=== PATIENT | male | born 1965 | race Caucasian/White ===

== ENCOUNTER 2019-05-15 23:18 | Inpatient (IN) | payer BC ==
[2019-05-16] MEDS ORDERED: ACETAMINOPHEN 325 MG TAB PO
[2019-05-16] MEDS ORDERED: morphine 2 MG INJ IV
[2019-05-16] MEDS ORDERED: NACL 0.9% 3 ML SYG IV
[2019-05-16] MEDS ORDERED: VANCOMYCIN IV PER PHARMACY XX (00:30)
[2019-05-16] MEDS ORDERED: SOD CHLORIDE 0.9% 1,000 ML IV (00:30)
[2019-05-16 00:47] LABS: ADD MAN DIFF? NO; BASOPHILS % 0.4 % (0.0-2.0); EOSINOPHILS # 0.2 10^3/ul (0.0-0.5); EOSINOPHILS % 1.9 % (0.0-7.0); HEMATOCRIT 34.4 % (42.0-52.0); HEMOGLOBIN 11.6 g/dl (14.0-18.0); LYMPHOCYTES # 1.4 10^3/ul (0.8-2.9); LYMPHOCYTES % 13.2 % (15.0-51.0); MEAN CORPUSCULAR HEMOGLOBIN 27.3 pg (29.0-33.0); MEAN CORPUSCULAR HGB CONC 33.7 g/dl (32.0-37.0); MEAN CORPUSCULAR VOLUME 80.9 fl (82.0-101.0); MEAN PLATELET VOLUME 9.3 fl (7.4-10.4); MONOCYTE # 0.9 10^3/ul (0.3-0.9); MONOCYTES % 8.7 % (0.0-11.0); NEUTROPHIL # 7.9 10^3/ul (1.6-7.5); NEUTROPHILS % 75.4 % (39.0-77.0); PLATELET COUNT 239 10^3/UL (140-415); RED BLOOD COUNT 4.25 10^6/ul (4.70-6.10); RED CELL DISTRIBUTION WIDTH 13.4 % (11.5-14.5)
[2019-05-16 00:47] LABS: WHITE BLOOD COUNT 10.5 10^3/ul (4.8-10.8)
[2019-05-16] MEDS: INSULIN ASPART [NOVOLOG] 3 ML PEN SC ×6 (01:00→21:00)
[2019-05-16] MEDS ORDERED: DEXTROSE 50% 50 ML SYRINGE IV (01:00)
[2019-05-16] MEDS ORDERED: GLUCOSE GEL 15 GRAM TUBE PO ×2 (01:00)
[2019-05-16] MEDS ORDERED: GLUCAGON 1 MG INJ IM (01:00)
[2019-05-16] MEDS ORDERED: GLUCOSE GEL 15 GRAM TUBE BUCCAL (01:00)
[2019-05-16 01:07] LABS: ALANINE AMINOTRANSFERASE 17 IU/L (13-69); ALBUMIN 4.1 g/dl (3.3-4.9); ALBUMIN/GLOBULIN RATIO 1.17; ALKALINE PHOSPHATASE 66 IU/L (42-121); ANION GAP 10 (5-13); ASPARTATE AMINO TRANSFERASE 24 IU/L (15-46); BILIRUBIN,INDIRECT 0.5 mg/dl (0-1.1); BILIRUBIN,TOTAL 0.5 mg/dl (0.2-1.3); BLOOD UREA NITROGEN 16 mg/dl (7-20); CALCIUM 9.6 mg/dl (8.4-10.2); CARBON DIOXIDE 27 mmol/L (21-31); CHLORIDE 105 mmol/L (97-110); CREATININE 0.91 mg/dl (0.61-1.24); Estimated GFR > 60 mL/min (>60); GLUCOSE 68 mg/dl (70-220); POTASSIUM 3.7 mmol/L (3.5-5.1); SODIUM 142 mmol/L (135-144); TOTAL PROTEIN 7.6 g/dl (6.1-8.1)
[2019-05-16] MEDS: DEXTROSE 5%-0.45% NACL 1,000 ML IV ×2 (01:07→23:13)
[2019-05-16] MEDS: ACCU-CHEK XX (01:56)
[2019-05-16] MEDS: POTASSIUM CHLORIDE (SR) 20 MEQ TAB PO (01:56)
[2019-05-16] MEDS: VANCOMYCIN HCL 2 GM in SOD CHLORIDE 0.9% 500 ML IVPB (02:48)
[2019-05-16] MEDS ORDERED: LEVOFLOXACIN 750MG/D5W (PMX) 150 ML IVPB (05:00)
[2019-05-16 05:54] LABS: ADD MAN DIFF? NO
[2019-05-16 05:58] LABS: BASOPHILS % 0.3 % (0.0-2.0); EOSINOPHILS # 0.2 10^3/ul (0.0-0.5); HEMATOCRIT 35.9 % (42.0-52.0); HEMOGLOBIN 12.2 g/dl (14.0-18.0); LYMPHOCYTES # 1.3 10^3/ul (0.8-2.9); LYMPHOCYTES % 12.3 % (15.0-51.0); MEAN CORPUSCULAR HEMOGLOBIN 27.2 pg (29.0-33.0); MEAN CORPUSCULAR VOLUME 80.1 fl (82.0-101.0); MEAN PLATELET VOLUME 9.7 fl (7.4-10.4); MONOCYTE # 0.9 10^3/ul (0.3-0.9); MONOCYTES % 8.8 % (0.0-11.0); NEUTROPHIL # 7.8 10^3/ul (1.6-7.5); NEUTROPHILS % 76.3 % (39.0-77.0); PLATELET COUNT 235 10^3/UL (140-415); RED BLOOD COUNT 4.48 10^6/ul (4.70-6.10); RED CELL DISTRIBUTION WIDTH 13.4 % (11.5-14.5)
[2019-05-16 05:58] LABS: WHITE BLOOD COUNT 10.2 10^3/ul (4.8-10.8)
[2019-05-16 06:19] LABS: INR 1.15; PROTIME 14.8 Sec (11.9-14.9); PT RATIO 1.2
[2019-05-16 06:20] LABS: PARTIAL THROMBOPLASTIN TIME 40.5 Sec (23.0-35.0)
[2019-05-16 06:25] LABS: IRON 18 ug/dl (35-150)
[2019-05-16 06:27] LABS: ALANINE AMINOTRANSFERASE 23 IU/L (13-69); ALBUMIN 3.8 g/dl (3.3-4.9); ALBUMIN/GLOBULIN RATIO 1.22; ALKALINE PHOSPHATASE 74 IU/L (42-121); ANION GAP 9 (5-13); ASPARTATE AMINO TRANSFERASE 26 IU/L (15-46); BILIRUBIN,INDIRECT 0.5 mg/dl (0-1.1); BILIRUBIN,TOTAL 0.5 mg/dl (0.2-1.3); BLOOD UREA NITROGEN 15 mg/dl (7-20); CALCIUM 9.3 mg/dl (8.4-10.2); CARBON DIOXIDE 28 mmol/L (21-31); CHLORIDE 105 mmol/L (97-110); CREATININE 0.86 mg/dl (0.61-1.24); Estimated GFR > 60 mL/min (>60); GLUCOSE 72 mg/dl (70-220); POTASSIUM 4.5 mmol/L (3.5-5.1); SODIUM 142 mmol/L (135-144); TOTAL PROTEIN 6.9 g/dl (6.1-8.1)
[2019-05-16 06:35] LABS: % IRON SATURATION 6 % SAT (22-52); TOTAL IRON BINDING CAPACITY 286 ug/dl (241-421)
[2019-05-16] MEDS: LEVOFLOXACIN 750MG/D5W (PMX) 150 ML IVPB (06:52)
[2019-05-16 07:03] LABS: CHOL/HDL RATIO 3.8 RATIO; CHOLESTEROL 119 mg/dl (100-200); HDL CHOLESTEROL 31 mg/dl (28-71); LDL CHOLESTEROL,CALCULATED 75 mg/dl; TRIGLYCERIDES 63 mg/dl (0-149)
[2019-05-16 07:30] LABS: HEMOGLOBIN A1C 5.8 % (0-5.9)
[2019-05-16 11:26] LABS: ERYTHROCYTE SEDIMENTATION RATE 100 mm/Hr (0-20)
[2019-05-16 11:31] LABS: C-REACTIVE PROTEIN 20.9 mg/dl (0.0-0.9)
[2019-05-16 12:23] LABS: PROCALCITONIN 0.11 ng/mL (0.00-0.10)
[2019-05-16] MEDS: VANCOMYCIN HCL 1.5 GM in SOD CHLORIDE 0.9% 250 ML IVPB (15:36)
[2019-05-16] MEDS: DEXTROSE 50% 50 ML SYRINGE IV (17:54)
[2019-05-16] MEDS ORDERED: hydrALAzine 20 MG INJ IV (19:30)
[2019-05-16] MEDS ORDERED: ONDANSETRON 4 MG INJ IV ×2 (19:30)
[2019-05-16] MEDS ORDERED: HYDROmorphONE 1 MG/5 ML IV SYRINGE IV ×3 (19:30)
[2019-05-16] MEDS ORDERED: LABETALOL HCL 20MG INJ IV (19:30)
[2019-05-16] MEDS ORDERED: SEVOFLURANE 15 MIN (19:45)
[2019-05-16] MEDS ORDERED: FENTAnyl 50 MCG/ML VIAL (19:45)
[2019-05-16] MEDS ORDERED: DEXTROSE 50% 50 ML SYRINGE (19:45)
[2019-05-16] MEDS ORDERED: CEFAZOLIN 1 GM INJ (19:45)
[2019-05-16] MEDS ORDERED: LIDOCAINE 2% (SDV) 5 ML INJ (19:45)
[2019-05-16] MEDS ORDERED: PROPOFOL 20 ML (19:45)
[2019-05-16] MEDS ORDERED: MIDAZOLAM 1 MG/ML 2 ML INJ (19:45)
[2019-05-16] MEDS ORDERED: ROPIVACAINE 0.5 % 30 ML VIAL (19:50)
[2019-05-16] MEDS ORDERED: ONDANSETRON 4 MG INJ (20:02)
[2019-05-16] MEDS ORDERED: DEXAMETHASONE 4 MG/ML 5 ML INJ (20:02)
[2019-05-16] MEDS: ATORVASTATIN 10 MG TAB PO (22:23)
[2019-05-17] MEDS: INSULIN ASPART [NOVOLOG] 3 ML PEN SC ×5 (01:00→21:06)
[2019-05-17] MEDS: ACCU-CHEK XX (02:00)
[2019-05-17] MEDS: VANCOMYCIN HCL 1.5 GM in SOD CHLORIDE 0.9% 250 ML IVPB ×2 (03:20→15:17)
[2019-05-17] MEDS: DEXTROSE 5%-0.45% NACL 1,000 ML IV ×2 (04:30→15:17)
[2019-05-17 06:13] LABS: ADD MAN DIFF? NO
[2019-05-17 06:25] LABS: WHITE BLOOD COUNT 11.4 10^3/ul (4.8-10.8)
[2019-05-17 06:25] LABS: BASOPHILS % 0.3 % (0.0-2.0); HEMATOCRIT 36.7 % (42.0-52.0); HEMOGLOBIN 12.6 g/dl (14.0-18.0); LYMPHOCYTES # 0.8 10^3/ul (0.8-2.9); LYMPHOCYTES % 7.1 % (15.0-51.0); MEAN CORPUSCULAR HEMOGLOBIN 27.5 pg (29.0-33.0); MEAN CORPUSCULAR HGB CONC 34.3 g/dl (32.0-37.0); MEAN PLATELET VOLUME 9.6 fl (7.4-10.4); MONOCYTE # 0.2 10^3/ul (0.3-0.9); MONOCYTES % 1.8 % (0.0-11.0); NEUTROPHIL # 10.3 10^3/ul (1.6-7.5); NEUTROPHILS % 90.2 % (39.0-77.0); PLATELET COUNT 279 10^3/UL (140-415); RED BLOOD COUNT 4.59 10^6/ul (4.70-6.10); RED CELL DISTRIBUTION WIDTH 12.9 % (11.5-14.5)
[2019-05-17] MEDS: LEVOFLOXACIN 750MG/D5W (PMX) 150 ML IVPB (06:31)
[2019-05-17 06:50] LABS: ALANINE AMINOTRANSFERASE 12 IU/L (13-69); ALKALINE PHOSPHATASE 79 IU/L (42-121); ANION GAP 12 (5-13); ASPARTATE AMINO TRANSFERASE 19 IU/L (15-46); BILIRUBIN,INDIRECT 0.4 mg/dl (0-1.1); BILIRUBIN,TOTAL 0.4 mg/dl (0.2-1.3); BLOOD UREA NITROGEN 22 mg/dl (7-20); CALCIUM 9.5 mg/dl (8.4-10.2); CARBON DIOXIDE 26 mmol/L (21-31); CHLORIDE 104 mmol/L (97-110); Estimated GFR > 60 mL/min (>60); GLUCOSE 225 mg/dl (70-220); POTASSIUM 4.6 mmol/L (3.5-5.1); SODIUM 142 mmol/L (135-144)
[2019-05-17] MEDS: DAKINS 0.0125%(1/40) 473 ML SOLUTION TP (09:08)
[2019-05-17] MEDS: ENOXAPARIN 40 MG/0.4 ML SYG SC (09:08)
[2019-05-17 10:30] LABS: ERYTHROCYTE SEDIMENTATION RATE 128 mm/Hr (0-20)
[2019-05-17 10:46] LABS: C-REACTIVE PROTEIN 18.6 mg/dl (0.0-0.9)
[2019-05-17] MEDS: CEFTRIAXONE 1 GM/50 ML (PMX) 50 ML IVPB (12:30)
[2019-05-17 12:50] LABS: PROCALCITONIN 0.09 ng/mL (0.00-0.10)
[2019-05-17 15:13] LABS: VANCOMYCIN,TROUGH 13.3 ug/ml (10.0-20.0)
[2019-05-17] MEDS: LISINOPRIL 5 MG TAB PO (17:32)
[2019-05-17] MEDS: metFORMIN 500 MG TAB PO (17:32)
[2019-05-17] MEDS: ATORVASTATIN 10 MG TAB PO ×2 (21:00→21:04)
[2019-05-18] MEDS: ACCU-CHEK XX (02:07)
[2019-05-18] MEDS: VANCOMYCIN HCL 1.5 GM in SOD CHLORIDE 0.9% 250 ML IVPB ×2 (03:03→18:08)
[2019-05-18 06:25] LABS: ADD MAN DIFF? NO
[2019-05-18 06:35] LABS: BASOPHIL # 0.1 10^3/ul (0.0-0.1); BASOPHILS % 0.6 % (0.0-2.0); EOSINOPHILS # 0.2 10^3/ul (0.0-0.5); EOSINOPHILS % 2.1 % (0.0-7.0); HEMATOCRIT 34.3 % (42.0-52.0); HEMOGLOBIN 11.6 g/dl (14.0-18.0); LYMPHOCYTES # 2.1 10^3/ul (0.8-2.9); LYMPHOCYTES % 23.6 % (15.0-51.0); MEAN CORPUSCULAR HEMOGLOBIN 27.1 pg (29.0-33.0); MEAN CORPUSCULAR HGB CONC 33.8 g/dl (32.0-37.0); MEAN CORPUSCULAR VOLUME 80.1 fl (82.0-101.0); MEAN PLATELET VOLUME 9.9 fl (7.4-10.4); MONOCYTE # 0.8 10^3/ul (0.3-0.9); MONOCYTES % 9.2 % (0.0-11.0); NEUTROPHIL # 5.8 10^3/ul (1.6-7.5); NEUTROPHILS % 63.8 % (39.0-77.0); PLATELET COUNT 282 10^3/UL (140-415); RED BLOOD COUNT 4.28 10^6/ul (4.70-6.10)
[2019-05-18 07:05] LABS: ALANINE AMINOTRANSFERASE 16 IU/L (13-69); ALBUMIN 3.8 g/dl (3.3-4.9); ALBUMIN/GLOBULIN RATIO 1.02; ALKALINE PHOSPHATASE 77 IU/L (42-121); ANION GAP 10 (5-13); ASPARTATE AMINO TRANSFERASE 21 IU/L (15-46); BILIRUBIN,INDIRECT 0.3 mg/dl (0-1.1); BILIRUBIN,TOTAL 0.3 mg/dl (0.2-1.3); BLOOD UREA NITROGEN 25 mg/dl (7-20); CALCIUM 8.9 mg/dl (8.4-10.2); CARBON DIOXIDE 28 mmol/L (21-31); CHLORIDE 104 mmol/L (97-110); CREATININE 0.91 mg/dl (0.61-1.24); Estimated GFR > 60 mL/min (>60); GLUCOSE 174 mg/dl (70-220); POTASSIUM 3.6 mmol/L (3.5-5.1); SODIUM 142 mmol/L (135-144); TOTAL PROTEIN 7.5 g/dl (6.1-8.1)
[2019-05-18] MEDS: metFORMIN 500 MG TAB PO ×2 (08:38→18:08)
[2019-05-18] MEDS: INSULIN ASPART [NOVOLOG] 3 ML PEN SC ×4 (08:39→20:40)
[2019-05-18] MEDS: ENOXAPARIN 40 MG/0.4 ML SYG SC (08:39)
[2019-05-18] MEDS: LISINOPRIL 5 MG TAB PO (08:40)
[2019-05-18] MEDS: DAKINS 0.0125%(1/40) 473 ML SOLUTION TP (09:00)
[2019-05-18] MEDS: CEFTRIAXONE 1 GM/50 ML (PMX) 50 ML IVPB (11:59)
[2019-05-18] MEDS: BISACODYL (EC) 5 MG TAB PO (13:54)
[2019-05-18] MEDS: DOCUSATE SODIUM 100 MG CAP PO (13:54)
[2019-05-18 17:52] LABS: C-REACTIVE PROTEIN 6.3 mg/dl (0.0-0.9)
[2019-05-18 18:41] LABS: ERYTHROCYTE SEDIMENTATION RATE 93 mm/Hr (0-20)
[2019-05-18] MEDS: GEMFIBROZIL 600 MG TAB PO (20:43)
[2019-05-18] MEDS: ATORVASTATIN 10 MG TAB PO ×2 (20:43→20:44)
[2019-05-18] MEDS: HYDROCODONE/APAP (5/325) TAB PO (20:43)
[2019-05-19] MEDS: ACCU-CHEK XX (01:29)
[2019-05-19] MEDS: VANCOMYCIN HCL 1.5 GM in SOD CHLORIDE 0.9% 250 ML IVPB ×2 (02:31→15:35)
[2019-05-19 06:02] LABS: ADD MAN DIFF? NO
[2019-05-19 06:05] LABS: WHITE BLOOD COUNT 7.7 10^3/ul (4.8-10.8)
[2019-05-19 06:05] LABS: BASOPHILS % 0.4 % (0.0-2.0); EOSINOPHILS # 0.3 10^3/ul (0.0-0.5); EOSINOPHILS % 3.4 % (0.0-7.0); HEMATOCRIT 34.3 % (42.0-52.0); HEMOGLOBIN 11.6 g/dl (14.0-18.0); LYMPHOCYTES # 1.6 10^3/ul (0.8-2.9); LYMPHOCYTES % 21.3 % (15.0-51.0); MEAN CORPUSCULAR HGB CONC 33.8 g/dl (32.0-37.0); MEAN CORPUSCULAR VOLUME 79.8 fl (82.0-101.0); MEAN PLATELET VOLUME 9.3 fl (7.4-10.4); MONOCYTE # 0.6 10^3/ul (0.3-0.9); MONOCYTES % 8.2 % (0.0-11.0); NEUTROPHIL # 5.1 10^3/ul (1.6-7.5); NEUTROPHILS % 66.1 % (39.0-77.0); PLATELET COUNT 276 10^3/UL (140-415); RED CELL DISTRIBUTION WIDTH 12.9 % (11.5-14.5)
[2019-05-19 06:39] LABS: ALANINE AMINOTRANSFERASE 26 IU/L (13-69); ALBUMIN 3.5 g/dl (3.3-4.9); ALBUMIN/GLOBULIN RATIO 0.92; ALKALINE PHOSPHATASE 72 IU/L (42-121); ANION GAP 9 (5-13); ASPARTATE AMINO TRANSFERASE 22 IU/L (15-46); BILIRUBIN,INDIRECT 0.3 mg/dl (0-1.1); BILIRUBIN,TOTAL 0.3 mg/dl (0.2-1.3); BLOOD UREA NITROGEN 21 mg/dl (7-20); CALCIUM 8.8 mg/dl (8.4-10.2); CARBON DIOXIDE 27 mmol/L (21-31); CHLORIDE 103 mmol/L (97-110); CREATININE 0.76 mg/dl (0.61-1.24); Estimated GFR > 60 mL/min (>60); GLUCOSE 158 mg/dl (70-220); POTASSIUM 3.5 mmol/L (3.5-5.1); SODIUM 139 mmol/L (135-144); TOTAL PROTEIN 7.3 g/dl (6.1-8.1)
[2019-05-19] MEDS: GEMFIBROZIL 600 MG TAB PO ×2 (08:18→20:46)
[2019-05-19] MEDS: metFORMIN 500 MG TAB PO ×2 (08:18→17:22)
[2019-05-19] MEDS: INSULIN ASPART [NOVOLOG] 3 ML PEN SC ×4 (08:19→20:49)
[2019-05-19] MEDS: ENOXAPARIN 40 MG/0.4 ML SYG SC (08:20)
[2019-05-19] MEDS: LISINOPRIL 5 MG TAB PO (08:21)
[2019-05-19] MEDS: DAKINS 0.0125%(1/40) 473 ML SOLUTION TP (08:21)
[2019-05-19] MEDS: CEFTRIAXONE 1 GM/50 ML (PMX) 50 ML IVPB (11:59)
[2019-05-19] MEDS: HYDROCODONE/APAP (5/325) TAB PO (11:59)
[2019-05-19] MEDS: BISACODYL (EC) 5 MG TAB PO (11:59)
[2019-05-19] MEDS: ATORVASTATIN 10 MG TAB PO ×2 (20:46→20:49)
[2019-05-20] MEDS: ACCU-CHEK XX (01:38)
[2019-05-20] MEDS: VANCOMYCIN HCL 1.5 GM in SOD CHLORIDE 0.9% 250 ML IVPB ×2 (02:56→17:19)
[2019-05-20] MEDS: metFORMIN 500 MG TAB PO ×2 (08:24→17:17)
[2019-05-20] MEDS: GEMFIBROZIL 600 MG TAB PO ×2 (08:24→20:14)
[2019-05-20] MEDS: LISINOPRIL 5 MG TAB PO (08:25)
[2019-05-20] MEDS: ENOXAPARIN 40 MG/0.4 ML SYG SC (08:27)
[2019-05-20] MEDS: INSULIN ASPART [NOVOLOG] 3 ML PEN SC ×4 (08:27→20:19)
[2019-05-20] MEDS: DAKINS 0.0125%(1/40) 473 ML SOLUTION TP (08:28)
[2019-05-20 11:37] LABS: C-REACTIVE PROTEIN 4.4 mg/dl (0.0-0.9)
[2019-05-20] MEDS: CEFTRIAXONE 1 GM/50 ML (PMX) 50 ML IVPB (12:30)
[2019-05-20 12:53] LABS: ERYTHROCYTE SEDIMENTATION RATE 94 mm/Hr (0-20)
[2019-05-20] MEDS: LIDOCAINE 1% (MPF) 5 ML VIAL SC (19:00)
[2019-05-20] MEDS: ATORVASTATIN 10 MG TAB PO (20:13)
[2019-05-20] MEDS: HYDROCODONE/APAP (5/325) TAB PO (20:14)
[2019-05-21] MEDS: ACCU-CHEK XX (02:00)
[2019-05-21] MEDS: VANCOMYCIN HCL 1.5 GM in SOD CHLORIDE 0.9% 250 ML IVPB (05:00)
[2019-05-21 05:41] LABS: ADD MAN DIFF? NO
[2019-05-21 05:43] LABS: WHITE BLOOD COUNT 7.2 10^3/ul (4.8-10.8)
[2019-05-21 05:43] LABS: BASOPHILS % 0.6 % (0.0-2.0); EOSINOPHILS # 0.2 10^3/ul (0.0-0.5); HEMATOCRIT 36.8 % (42.0-52.0); HEMOGLOBIN 12.2 g/dl (14.0-18.0); LYMPHOCYTES # 1.7 10^3/ul (0.8-2.9); LYMPHOCYTES % 23.7 % (15.0-51.0); MEAN CORPUSCULAR HEMOGLOBIN 26.9 pg (29.0-33.0); MEAN CORPUSCULAR HGB CONC 33.2 g/dl (32.0-37.0); MEAN CORPUSCULAR VOLUME 81.1 fl (82.0-101.0); MEAN PLATELET VOLUME 9.5 fl (7.4-10.4); MONOCYTE # 0.6 10^3/ul (0.3-0.9); NEUTROPHIL # 4.6 10^3/ul (1.6-7.5); PLATELET COUNT 302 10^3/UL (140-415); RED BLOOD COUNT 4.54 10^6/ul (4.70-6.10); RED CELL DISTRIBUTION WIDTH 12.8 % (11.5-14.5)
[2019-05-21 06:06] LABS: PHOSPHORUS 3.7 mg/dl (2.5-4.9)
[2019-05-21 06:10] LABS: ANION GAP 6 (5-13); BLOOD UREA NITROGEN 15 mg/dl (7-20); CALCIUM 9.6 mg/dl (8.4-10.2); CARBON DIOXIDE 30 mmol/L (21-31); CHLORIDE 104 mmol/L (97-110); CREATININE 0.82 mg/dl (0.61-1.24); Estimated GFR > 60 mL/min (>60); GLUCOSE 166 mg/dl (70-220); POTASSIUM 3.6 mmol/L (3.5-5.1); SODIUM 140 mmol/L (135-144)
[2019-05-21] MEDS: INSULIN ASPART [NOVOLOG] 3 ML PEN SC ×4 (08:05→21:11)
[2019-05-21] MEDS: metFORMIN 500 MG TAB PO ×2 (08:06→17:19)
[2019-05-21] MEDS: ENOXAPARIN 40 MG/0.4 ML SYG SC (08:06)
[2019-05-21] MEDS: GEMFIBROZIL 600 MG TAB PO ×2 (08:06→21:10)
[2019-05-21] MEDS: LISINOPRIL 5 MG TAB PO (08:08)
[2019-05-21] MEDS: DAKINS 0.0125%(1/40) 473 ML SOLUTION TP (08:09)
[2019-05-21] MEDS: CEFTRIAXONE 1 GM/50 ML (PMX) 50 ML IVPB (12:04)
[2019-05-21] MEDS: ATORVASTATIN 10 MG TAB PO (21:10)
[2019-05-22] MEDS: ACCU-CHEK XX (02:00)
[2019-05-22] MEDS: ENOXAPARIN 40 MG/0.4 ML SYG SC (08:20)
[2019-05-22] MEDS: metFORMIN 500 MG TAB PO (08:20)
[2019-05-22] MEDS: GEMFIBROZIL 600 MG TAB PO (08:22)
[2019-05-22] MEDS: LISINOPRIL 5 MG TAB PO (08:22)
[2019-05-22] MEDS: INSULIN ASPART [NOVOLOG] 3 ML PEN SC ×2 (08:22→12:03)
[2019-05-22] MEDS: DAKINS 0.0125%(1/40) 473 ML SOLUTION TP (08:23)
[2019-05-22] MEDS: CEFTRIAXONE 1 GM/50 ML (PMX) 50 ML IVPB (12:02)
== END 2019-05-22 13:54 | disposition home health service (06) | DRG 623 ==
LOC: PP2 23:18
PROC: 0JBQ0ZZ Excision of Right Foot Subcutaneous Tissue and Fascia, Open Approach (ICD-10-PCS; principal; 2019-05-16 19:36)
PROC: 0MBS0ZZ Excision of Right Foot Bursa and Ligament, Open Approach (ICD-10-PCS; 2019-05-16 19:36)
PROC: 0Y9M0ZZ Drainage of Right Foot, Open Approach (ICD-10-PCS; 2019-05-16 19:36)
PROC: 02HV33Z Insertion of Infusion Device into Superior Vena Cava, Percutaneous Approach (ICD-10-PCS; 2019-05-16 19:36)
DX: E11.621 Type 2 diabetes mellitus with foot ulcer (principal); M86.9 Osteomyelitis, unspecified; L03.115 Cellulitis of right lower limb; L02.611 Cutaneous abscess of right foot; L97.516 Non-pressure chronic ulcer of other part of right foot with bone involvement without evidence of necrosis; E11.69 Type 2 diabetes mellitus with other specified complication; E66.9 Obesity, unspecified; E78.5 Hyperlipidemia, unspecified; D50.9 Iron deficiency anemia, unspecified; D64.9 Anemia, unspecified; E11.42 Type 2 diabetes mellitus with diabetic polyneuropathy; E11.51 Type 2 diabetes mellitus with diabetic peripheral angiopathy without gangrene; I10 Essential (primary) hypertension; Z79.84 Long term (current) use of oral hypoglycemic drugs; Z68.31 Body mass index [BMI] 31.0-31.9, adult
CPT/HCPCS: 36569; 71045; 73630; 73718; 76937; 80048; 80053; 80061; 80202; 82306; 82652; 82728; 82962; 83036; 83540; 83735; 84100; 84145; 84443; 85025; 85610; 85651; 85730; 86140; 87070; 87075; 87102; 87116; 93922; 93970